=== PATIENT | female | born 1965 | race Two or more races ===

== ENCOUNTER 2020-07-10 11:44 | Outpatient (CLI) | payer OTHER | END 2020-07-10 11:46 | disposition home or self-care (01) | LOC: SONOGRAMA 11:44 | PROVIDERS: ATTEND Pathology Anatomic Pathology & Clinical Pathology | DX: E04.1 Nontoxic single thyroid nodule (principal) ==

== ENCOUNTER 2023-12-12 12:00 | Inpatient (IN) | payer OTHER ==
[~2023-12-12] VITALS: Ht 170.2 cm; Wt 60.3 kg
[2023-12-12] MEDS ORDERED: ATENOLOL-CHLOR1 EACH (14:02)
[2023-12-12] MEDS ORDERED: LEVOTHYROXINE75 MC1 (14:03)
[2023-12-19] MEDS ORDERED: ATENOLOL50 MG (11:39)
[2023-12-19] MEDS ORDERED: SYNTHROID75 MCG (11:40)
[2023-12-19 18:25] LABS: HEMATOCRIT 35.3 % (36.0-45.00); HEMOGLOBIN 12.5 g/dL (12.0-15.00); MEAN CELL VOLUME 89.2 fL (80.00-100.00); MEAN CORPUSCULAR HEMOGLOBIN 31.7 pg (27.00-32.0); MEAN CORPUSCULAR HGB CONC 35.5 g/dl (32.0-36.0); PLATELET COUNT 209 K/uL (150-450); RED BLOOD COUNT 3.95 M/uL (4.00-6.00); RED CELL DISTRIBUTION WIDTH 12.2 % (11.5-14.5)
[2023-12-19 18:39] LABS: ALBUMIN 3.1 gm/dL (3.4-5.0); CALCIUM 8.5 mg/dL (8.5-10.1); CREATININE SERUM 0.58 mg/dL (0.55-1.02); GFR 106.77; MAGNESIUM 1.9 mg/dL (1.8-2.4); PHOSPHOROUS 3.8 mg/dL (2.5-4.9)
[2023-12-19 18:50] LABS: POTASSIUM 2.39 mEq/L (3.5-5.1)
[2023-12-20 06:27] LABS: HEMATOCRIT 35.1 % (36.0-45.00); HEMOGLOBIN 12.4 g/dL (12.0-15.00); MEAN CELL VOLUME 89.4 fL (80.00-100.00); MEAN CORPUSCULAR HEMOGLOBIN 31.7 pg (27.00-32.0); MEAN CORPUSCULAR HGB CONC 35.4 g/dl (32.0-36.0); PLATELET COUNT 226 K/uL (150-450); RED BLOOD COUNT 3.93 M/uL (4.00-6.00); RED CELL DISTRIBUTION WIDTH 11.8 % (11.5-14.5)
[2023-12-20 06:56] LABS: ALBUMIN 2.9 gm/dL (3.4-5.0); CALCIUM 8.3 mg/dL (8.5-10.1); CREATININE SERUM 0.62 mg/dL (0.55-1.02); GFR 98.86; PHOSPHOROUS 4.2 mg/dL (2.5-4.9)
[2023-12-20 07:12] LABS: POTASSIUM 2.52 mEq/L (3.5-5.1)
[2023-12-21 06:41] LABS: HEMATOCRIT 34.4 % (36.0-45.00); HEMOGLOBIN 12.1 g/dL (12.0-15.00); MEAN CELL VOLUME 90.6 fL (80.00-100.00); MEAN CORPUSCULAR HEMOGLOBIN 31.8 pg (27.00-32.0); MEAN CORPUSCULAR HGB CONC 35.1 g/dl (32.0-36.0); PLATELET COUNT 236 K/uL (150-450); RED CELL DISTRIBUTION WIDTH 12.2 % (11.5-14.5)
[2023-12-21 06:56] LABS: CALCIUM 8.7 mg/dL (8.5-10.1); CREATININE SERUM 0.7 mg/dL (0.55-1.02); GFR 85.94; MAGNESIUM 2.7 mg/dL (1.8-2.4); PHOSPHOROUS 2.1 mg/dL (2.5-4.9)
[2023-12-21 08:07] LABS: POTASSIUM 2.95 mEq/L (3.5-5.1)
[2023-12-22 06:20] LABS: HEMATOCRIT 36.3 % (36.0-45.00); HEMOGLOBIN 12.6 g/dL (12.0-15.00); MEAN CELL VOLUME 91.6 fL (80.00-100.00); MEAN CORPUSCULAR HEMOGLOBIN 31.9 pg (27.00-32.0); MEAN CORPUSCULAR HGB CONC 34.8 g/dl (32.0-36.0); PLATELET COUNT 229 K/uL (150-450); RED BLOOD COUNT 3.96 M/uL (4.00-6.00); RED CELL DISTRIBUTION WIDTH 11.7 % (11.5-14.5)
[2023-12-22 06:37] LABS: ALBUMIN 2.7 gm/dL (3.4-5.0); CALCIUM 8.4 mg/dL (8.5-10.1); CREATININE SERUM 0.57 mg/dL (0.55-1.02); GFR 108.94; MAGNESIUM 2.7 mg/dL (1.8-2.4); PHOSPHOROUS 3.3 mg/dL (2.5-4.9); POTASSIUM 3.29 mEq/L (3.5-5.1)
[2023-12-23 06:55] LABS: CALCIUM 9.1 mg/dL (8.5-10.1); CREATININE SERUM 0.6 mg/dL (0.55-1.02); GFR 102.68; MAGNESIUM 2.2 mg/dL (1.8-2.4); PHOSPHOROUS 2.7 mg/dL (2.5-4.9); POTASSIUM 3.54 mEq/L (3.5-5.1)
[2023-12-25] MEDS ORDERED: HYOSCYAMINE0.125 M1 SL (11:44)
[2023-12-25] MEDS ORDERED: PROTONIX40 MG PO (11:44)
[2023-12-25] MEDS ORDERED: NEURONTIN300 MG PO (11:44)
[2023-12-25] MEDS ORDERED: INTESTINEX680 M1 PO (11:44)
== END 2023-12-25 13:18 | disposition home or self-care (01) | DRG 330 ==
LOC: O/R 12-19 08:22 → SURH 12-19 08:22 → SURG 12-19 10:00 → SURH 12-19 20:45
PROVIDERS: Internal Medicine Geriatric Medicine; ADMIT Surgery; ATTEND Surgery
PROC: 0DTP4ZZ Resection of Rectum, Percutaneous Endoscopic Approach (ICD-10-PCS; 2023-12-19)
PROC: 0DTN4ZZ Resection of Sigmoid Colon, Percutaneous Endoscopic Approach (ICD-10-PCS; 2023-12-19)
PROC: 07BC4ZZ Excision of Pelvis Lymphatic, Percutaneous Endoscopic Approach (ICD-10-PCS; 2023-12-19)
PROC: 0DJD8ZZ Inspection of Lower Intestinal Tract, Via Natural or Artificial Opening Endoscopic (ICD-10-PCS; 2023-12-19)
PROC: 0D1B4Z4 Bypass Ileum to Cutaneous, Percutaneous Endoscopic Approach (ICD-10-PCS; principal; 2023-12-19 10:00)
DX: C20 Malignant neoplasm of rectum (principal); K56.7 Ileus, unspecified; K91.89 Other postprocedural complications and disorders of digestive system; R59.0 Localized enlarged lymph nodes; R19.4 Change in bowel habit; I11.9 Hypertensive heart disease without heart failure

== ENCOUNTER 2024-01-19 06:17 | Day surgery (SDC) | payer OTHER ==
[2024-01-13 11:17] LABS: PH,URINE 5.5 (5.0-8.0); URINE APPEARANCE Clear; URINE BILIRRUBIN Negative (NEGATIVE); URINE BLOOD Negative; URINE COLOR Dark Yellow; URINE GLUCOSE Negative (NEGATIVE); URINE LEUKOCYTE Trace; URINE NITRATE Negative; URINE PROTEIN 30 (NEGATIVE); URINE UROBILINOGEN 0.2 E.U./dl
[2024-01-13 11:21] LABS: HEMATOCRIT 38.1 % (36.0-45.00); MEAN CELL VOLUME 88.7 fL (80.00-100.00); MEAN CORPUSCULAR HEMOGLOBIN 30.3 pg (27.00-32.0); MEAN CORPUSCULAR HGB CONC 34.2 g/dl (32.0-36.0); PLATELET COUNT 290 K/uL (150-450); RED BLOOD COUNT 4.29 M/uL (4.00-6.00); RED CELL DISTRIBUTION WIDTH 11.8 % (11.5-14.5); URINE BACTERIA 61.7 uL (0.0-1933); URINE EPITHELIAL CELLS 11.2 uL (0.0-38.8); URINE RBC 7.6 uL (0.0-20.8); URINE WBC 111.7 uL (0.0-23.2)
[2024-01-13 11:40] LABS: INR 0.97; PARTIAL THROMBOPLASTIN TIME 28.9 SECONDS (22.0-34.0); PROTHROMBIN TIME 10.2 SECONDS (9.0-11.5)
[2024-01-13 11:48] LABS: ALBUMIN 3.7 gm/dL (3.4-5.0); BILIRUBIN TOTAL 0.21 mg/dL (0.3-1.2); CALCIUM 9.7 mg/dL (8.5-10.1); CREATININE SERUM 0.65 mg/dL (0.55-1.02); GFR 93.62; GLOBULINA 3.5 G/DL (2.4-3.5); POTASSIUM 3.88 mEq/L (3.5-5.1); TOTAL PROTEIN 7.2 gm/dL (6.4-8.2)
[~2024-01-19] VITALS: Ht 167.6 cm; Wt 58.5 kg
[~2024-01-19 06:17] MED LIST: ATENOLOL-CHLOR1 EACH; ATENOLOL50 MG; HYOSCYAMINE0.125 M1 SL; INTESTINEX680 M1 PO; LEVOTHYROXINE75 MC1; NEURONTIN300 MG PO; PROTONIX40 MG PO; SYNTHROID75 MCG
[2024-01-19] MEDS ORDERED: BUPIVACAINE HCL/PF 0.5% 30ML ML ONE (08:27)
[2024-01-19] MEDS ORDERED: LIDOCAINE HCL 1%/Epi 20ML VIAL IJ ONE ×2 (08:27→09:00)
[2024-01-19] MEDS ORDERED: BUPIVACAINE HCL/PF 0.5% 30ML ML IJ ONE (09:00)
[2024-01-19] MEDS ORDERED: CEFAZOLIN SODIUM 1,000 MG VIAL IV ONE (09:00)
[2024-01-19] MEDS ORDERED: TRAM1TAB98 PO (09:24)
== END 2024-01-19 12:45 | disposition home or self-care (01) ==
LOC: CIR.AMB 06:17 → EDSTATUS 08:45 → SURH 08:45 → CIR.AMB 08:45
PROVIDERS: ATTEND Surgery
DX: C20 Malignant neoplasm of rectum (principal); Z88.8 Allergy status to other drugs, medicaments and biological substances

== ENCOUNTER 2024-02-11 10:50 | Inpatient (IN) | payer OTHER ==
[~2024-02-11] VITALS: Ht 167.6 cm; Wt 59.0 kg
[~2024-02-11 10:50] MED LIST changes: +TRAM1TAB98 PO
[2024-02-11] MEDS ORDERED: 0.9 % SODIUM CHLORIDE 1,000 ML IV SCH (11:45)
[2024-02-11 12:30] LABS: INR 0.98; PARTIAL THROMBOPLASTIN TIME 25.1 SECONDS (22.0-34.0); PROTHROMBIN TIME 10.3 SECONDS (9.0-11.5)
[2024-02-11 12:32] LABS: HEMATOCRIT 36.7 % (36.0-45.00); HEMOGLOBIN 12.7 g/dL (12.0-15.00); MEAN CELL VOLUME 88.7 fL (80.00-100.00); MEAN CORPUSCULAR HEMOGLOBIN 30.6 pg (27.00-32.0); MEAN CORPUSCULAR HGB CONC 34.5 g/dl (32.0-36.0); PLATELET COUNT 231 K/uL (150-450); RED BLOOD COUNT 4.13 M/uL (4.00-6.00); RED CELL DISTRIBUTION WIDTH 12.2 % (11.5-14.5)
[2024-02-11 12:37] LABS: ALBUMIN 3.5 gm/dL (3.4-5.0); BILIRUBIN TOTAL 0.34 mg/dL (0.3-1.2); CALCIUM 9.3 mg/dL (8.5-10.1); CREATININE SERUM 0.84 mg/dL (0.55-1.02); GFR 69.64; POTASSIUM 4.47 mEq/L (3.5-5.1); TOTAL PROTEIN 7.5 gm/dL (6.4-8.2)
[2024-02-11] MEDS ORDERED: RINGERS SOLUTION,LACTATED 1,000 ML IV SCH (21:30)
[2024-02-11] MEDS ORDERED: MORPHINE SULFATE 4 MG/ML VIAL IV PRN (21:30)
[2024-02-12] MEDS ORDERED: PIPERACILLIN/TAZOBACTAM SODIUM 3.375 GM in DEXTROSE 5 % IN WATER 100 ML IV SCH
[2024-02-12] MEDS ORDERED: LEVOTHYROXINE SODIUM 75 MCG TABLET PO SCH (06:00)
[2024-02-12] MEDS ORDERED: LIDOCAINE HCL 1%/Epi 20ML VIAL IJ ONE ×2 (07:44→09:15)
[2024-02-12] MEDS ORDERED: BUPIVACAINE HCL/PF 0.5% 30ML ML ONE (07:44)
[2024-02-12] MEDS ORDERED: ATENOLOL 50 MG TABLET PO SCH (09:00)
[2024-02-12] MEDS ORDERED: FAMOTIDINE/PF 20 MG/2 ML VIAL IV SCH (09:00)
[2024-02-12] MEDS ORDERED: BUPIVACAINE HCL 30 ML VIAL IJ ONE (09:15)
[2024-02-12] MEDS ORDERED: NEURONTIN300 MG PO (09:35)
[2024-02-12] MEDS ORDERED: TRAM1TAB98 PO (09:35)
[2024-02-12] MEDS ORDERED: AMOX1TAB5 PO (09:37)
[2024-02-12] MEDS ORDERED: MORPHINE SULFATE 4 MG/ML CARTRIDGE IV PRN (09:45)
[2024-02-12] MEDS ORDERED: FAMOTIDINE/PF 20 MG/2 ML VIAL ONE (10:35)
[2024-02-12] MEDS ORDERED: ONDANSETRON HCL 2 MG/ML VIAL ONE (10:45)
[2024-02-12] MEDS ORDERED: PROMETHAZINE HCL 25 MG/ML AMPUL IM STA ×2 (12:11)
[2024-02-12] MEDS ORDERED: PROMETHAZINE HCL 25 MG/ML AMPUL ONE (12:51)
== END 2024-02-12 15:09 | disposition home or self-care (01) | DRG 316 ==
LOC: ER 10:50 → SURH 21:43
PROVIDERS: General Practice; ADMIT Surgery; ATTEND Surgery
PROC: 05PYX3Z Removal of Infusion Device from Upper Vein, External Approach (ICD-10-PCS; principal; 2024-02-11)
DX: T82.898A Other specified complication of vascular prosthetic devices, implants and grafts, initial encounter (principal); Y65.8 Other specified misadventures during surgical and medical care; Z20.822 Contact with and (suspected) exposure to COVID-19

== ENCOUNTER 2024-09-24 08:45 | Inpatient (IN) | payer OTHER ==
[~2024-09-24] VITALS: Ht 167.6 cm; Wt 58.5 kg
[~2024-09-24 08:45] MED LIST changes: +AMOX1TAB5 PO
[2024-09-24 11:07] LABS: URINE APPEARANCE Clear; URINE BILIRRUBIN Negative (NEGATIVE); URINE BLOOD Negative; URINE COLOR Yellow; URINE GLUCOSE Negative (NEGATIVE); URINE KETONE Negative (NEGATIVE); URINE LEUKOCYTE Small; URINE NITRATE Negative; URINE PROTEIN Negative (NEGATIVE); URINE UROBILINOGEN 0.2 E.U./dl
[2024-09-24 11:11] LABS: URINE BACTERIA 26.4 uL (0.0-1933); URINE EPITHELIAL CELLS 4.1 uL (0.0-38.8)
[2024-09-24 11:14] LABS: URINE RBC 0.7 uL (0.0-20.8)
[2024-09-24 11:20] LABS: HEMATOCRIT 38.7 % (36.0-45.00); HEMOGLOBIN 13.5 g/dL (12.0-15.00); MEAN CELL VOLUME 93.6 fL (80.00-100.00); MEAN CORPUSCULAR HEMOGLOBIN 32.6 pg (27.00-32.0); MEAN CORPUSCULAR HGB CONC 34.8 g/dl (32.0-36.0); PLATELET COUNT 199 K/uL (150-450); RED BLOOD COUNT 4.13 M/uL (4.00-6.00); RED CELL DISTRIBUTION WIDTH 13.2 % (11.5-14.5)
[2024-09-24 11:26] LABS: INR 0.94; PARTIAL THROMBOPLASTIN TIME 26.1 SECONDS (22.0-34.0); PROTHROMBIN TIME 10.3 SECONDS (9.0-11.5)
[2024-09-24 11:43] LABS: ALBUMIN 3.8 gm/dL (3.4-5.0); BILIRUBIN TOTAL 0.33 mg/dL (0.3-1.2); CALCIUM 9.8 mg/dL (8.5-10.1); CREATININE SERUM 0.65 mg/dL (0.55-1.02); GFR 93.29; GLOBULINA 3.7 G/DL (2.4-3.5); POTASSIUM 3.9 mEq/L (3.5-5.1); TOTAL PROTEIN 7.5 gm/dL (6.4-8.2)
[2024-10-04] MEDS ORDERED: LIDOCAINE HCL 1%/EPINEPHRINE 20ML VIAL IJ ONE (10:45)
[2024-10-04] MEDS ORDERED: METRONIDAZOLE/SODIUM CHLORIDE 500 MG/100 ML PIGGYBACK IV ONE (10:45)
[2024-10-04] MEDS ORDERED: CEFTRIAXONE SODIUM 2,000 MG VIAL IV ONE (10:45)
[2024-10-04] MEDS ORDERED: CHLORHEXIDINE GLUCONATE 120 ML BOTTLE TOP ONE (10:45)
[2024-10-04] MEDS ORDERED: BUPIVACAINE HCL 30 ML VIAL IJ ONE (10:45)
[2024-10-04] MEDS ORDERED: ONDANSETRON HCL 2 MG/ML VIAL IV PRN (11:00)
[2024-10-04] MEDS ORDERED: OxyCODONE HCL 5 MG TABLET (ROXICODONE) PO PRN (11:00)
[2024-10-04] MEDS ORDERED: MORPHINE SULFATE 4 MG/ML CARTRIDGE IV PRN (11:00)
[2024-10-04] MEDS ORDERED: 0.9 % SODIUM CHLORIDE 1,000 ML IV SCH (11:00)
[2024-10-04] MEDS ORDERED: DEXTROSE 50 % IN WATER 0.5 G/ML DISP.SYRIN IV PRN (11:00)
[2024-10-04 12:46] LABS: HEMATOCRIT 34.8 % (36.0-45.00); HEMOGLOBIN 11.8 g/dL (12.0-15.00); MEAN CELL VOLUME 95.1 fL (80.00-100.00); MEAN CORPUSCULAR HEMOGLOBIN 32.2 pg (27.00-32.0); MEAN CORPUSCULAR HGB CONC 33.8 g/dl (32.0-36.0); PLATELET COUNT 195 K/uL (150-450); RED BLOOD COUNT 3.65 M/uL (4.00-6.00); RED CELL DISTRIBUTION WIDTH 12.4 % (11.5-14.5)
[2024-10-04] MEDS ORDERED: HYOSCYAMINE SULFATE 0.125 MG TAB.SUBL SL SCH (13:00)
[2024-10-04 13:25] LABS: ALBUMIN 3.2 gm/dL (3.4-5.0); CALCIUM 8.8 mg/dL (8.5-10.1); CREATININE SERUM 0.52 mg/dL (0.55-1.02); GFR 120.69; MAGNESIUM 2.1 mg/dL (1.8-2.4); PHOSPHOROUS 3.6 mg/dL (2.5-4.9); POTASSIUM 4.24 mEq/L (3.5-5.1)
[2024-10-04] MEDS ORDERED: ACETAMINOPHEN 500 MG GEL..CAP PO SCH (14:00)
[2024-10-04] MEDS ORDERED: ENALAPRILAT DIHYDRATE 1.25 MG/ML VIAL IV PRN (15:00)
[2024-10-04 16:00] VITALS: BP 135/77; O2SAT 94
[2024-10-04] MEDS ORDERED: GABAPENTIN 300 MG CAPSULE PO SCH (17:00)
[2024-10-04] MEDS ORDERED: POLYETHYLENE GLYCOL 3350 17 GM BLIST.PACK PO SCH (17:00)
[2024-10-04] MEDS ORDERED: CELECOXIB 200 MG CAPSULE PO SCH (21:00)
[2024-10-04] MEDS ORDERED: FAMOTIDINE/PF 20 MG/2 ML VIAL IV PUSH SCH (21:00)
[2024-10-05] VITALS: BP 120/76; O2SAT 98
[2024-10-05] MEDS ORDERED: LEVOTHYROXINE SODIUM 75 MCG TABLET PO SCH (06:00)
[2024-10-05 06:47] LABS: HEMATOCRIT 35.2 % (36.0-45.00); HEMOGLOBIN 12.4 g/dL (12.0-15.00); MEAN CELL VOLUME 91.8 fL (80.00-100.00); MEAN CORPUSCULAR HEMOGLOBIN 32.4 pg (27.00-32.0); MEAN CORPUSCULAR HGB CONC 35.3 g/dl (32.0-36.0); PLATELET COUNT 186 K/uL (150-450); RED BLOOD COUNT 3.84 M/uL (4.00-6.00); RED CELL DISTRIBUTION WIDTH 12.8 % (11.5-14.5)
[2024-10-05 07:16] LABS: ALBUMIN 2.9 gm/dL (3.4-5.0); CALCIUM 8.3 mg/dL (8.5-10.1); CREATININE SERUM 0.44 mg/dL (0.55-1.02); GFR 146.36; PHOSPHOROUS 3.7 mg/dL (2.5-4.9); POTASSIUM 3.47 mEq/L (3.5-5.1)
[2024-10-05] MEDS ORDERED: ATENOLOL 50 MG TABLET PO SCH (09:00)
[2024-10-05 09:27] VITALS: BP 106/63; O2SAT 93
[2024-10-05] MEDS ORDERED: POTASSIUM CHLORIDE 20MEQ/100ML H2O PB IV NR (15:30)
[2024-10-05 16:00] VITALS: BP 96/56; O2SAT 95
[2024-10-05] MEDS ORDERED: ENOXAPARIN SODIUM 40 MG/0.4 ML SYRINGE SUBCUTANEO SCH (17:00)
[2024-10-06 00:11] VITALS: BP 97/61; O2SAT 95
[2024-10-06 08:22] VITALS: BP 133/80; O2SAT 95
[2024-10-06] MEDS ORDERED: ENOXAPARIN SODIUM 40 MG/0.4 ML SYRINGE SUBCUTANEO SCH (09:00)
[2024-10-06 16:00] VITALS: BP 126/67; O2SAT 97
[2024-10-07 00:49] VITALS: BP 107/69; O2SAT 95
[2024-10-07 08:00] VITALS: BP 118/71; O2SAT 97
[2024-10-07] MEDS ORDERED: PEPCID AC20 MG PO (12:41)
[2024-10-07] MEDS ORDERED: TRAM1TAB98 PO (12:41)
[2024-10-07] MEDS ORDERED: INTESTINEX680 M1 PO (12:41)
[2024-10-07] MEDS ORDERED: BUTALB-ACETAMI1 EACH PO (12:42)
== END 2024-10-07 13:33 | disposition home or self-care (01) | DRG 331 ==
LOC: SURG 10-04 05:57 → O/R 10-04 05:57 → SURH 10-04 07:00 → SURG 10-04 11:15
PROVIDERS: ADMIT Surgery; ATTEND Surgery
PROC: 0DBB4ZZ Excision of Ileum, Percutaneous Endoscopic Approach (ICD-10-PCS; principal; 2024-10-04 07:00)
DX: C20 Malignant neoplasm of rectum (principal); R59.0 Localized enlarged lymph nodes